=== PATIENT | female | born 1985 | race American Indian/Alaskan Native ===

== ENCOUNTER 2018-12-26 14:48 | Outpatient (CLI) | payer MEDICAID, OTHER | END 2018-12-26 14:49 | disposition home or self-care (01) | LOC: LABHHL 14:48 | PROVIDERS: ATTEND Surgery | DX: N63.14 Unspecified lump in the right breast, lower inner quadrant (principal) | CPT/HCPCS: 88305 ==

== ENCOUNTER 2019-01-23 06:14 | Day surgery (SDC) | payer MEDICAID ==
[~2019-01-23 06:14] MED LIST: ANCEF/STERILE WATER 2 GM/20 ML 2 GM/20 ML SYRINGE IV NR
[2019-01-23] MEDS ORDERED: LACTATED RINGERS 1,000 ML IV SCH (07:00)
[2019-01-23] MEDS ORDERED: VERSED ONE (07:32)
[2019-01-23] MEDS ORDERED: NEURONTIN ONE (07:33)
--- NOTE | 2019-01-23 07:39 | Anesthesia Consultation ---
Anesthesia Consult and Med Hx Date of service: 01/23/19 - Airway Anesthetic Teeth Evaluation: Good ROM Head & Neck: Adequate Mental/Hyoid Distance: Adequate Mallampati Class: Class II Intubation Access Assessment: Probably Good - Pulmonary Exam CTA: Yes - Cardiac Exam Cardiac Exam: RRR - Pre-Operative Health Status ASA Pre-Surgery Classification: ASA2 Proposed Anesthetic Plan: General - Pulmonary Hx Asthma: No COPD: No Hx Pneumonia: No - Cardiovascular System Hx Hypertension: No - Central Nervous System Hx Seizures: No Hx Psychiatric Problems: No - Endocrine Hx Renal Disease: No Hx End Stage Renal Disease: No Hx Hypothyroidism: No Hx Hyperthyroidism: No - Hematic Hx Anemia: No Hx Sickle Cell Disease: No - Other Systems Hx Alcohol Use: Yes (OCCA) Hx Substance Use: No Hx Cancer: No
[2019-01-23] MEDS ORDERED: TORADOL IV PRN (07:40)
[2019-01-23] MEDS ORDERED: DILAUDID IV PRN (07:40)
--- NOTE | 2019-01-23 07:40 | Anesthesia Day of Surgery ---
Anesthesia Day of Surgery - Day of Surgery Patient Examined: Yes Patient H&P Reviewed: Yes Patient is NPO: Yes Beta Blockers: No Cardiac Clearance: No Pulmonary Clearance: No Tanner's Test: N/A
[2019-01-23] MEDS ORDERED: ZOFRAN ONE (07:44)
[2019-01-23] MEDS ORDERED: SUBLIMAZE ONE (07:44)
[2019-01-23] MEDS ORDERED: DECADRON ONE (07:44)
[2019-01-23] MEDS ORDERED: DIPRIVAN 10 MG/ML IV ONE (07:45)
[2019-01-23] MEDS ORDERED: MARCAINE 0.25% INFILTRATI ONE ×2 (07:52→08:33)
[2019-01-23] MEDS ORDERED: XYLOCAINE 1% 20 mL ONE (07:52)
[2019-01-23] MEDS ORDERED: VERSED IV NR (08:00)
[2019-01-23] MEDS ORDERED: NEURONTIN PO NR (08:00)
[2019-01-23] MEDS ORDERED: NACL 0.9% IR ONE (08:34)
[2019-01-23] MEDS ORDERED: XYLOCAINE 1% 20 mL INFILTRATI ONE (08:34)
[2019-01-23] MEDS ORDERED: TORADOL ONE (09:13)
--- NOTE | 2019-01-23 09:23 | Short Stay Summary ---
Short Stay Documentation Date of service: 01/23/19 - History H&P: obtained from office - Allergies and Medications Current Medications: Allergies No Known Allergies Allergy (Verified 01/16/19 10:12) Home Medications Medication Instructions Recorded Confirmed Last Taken Type HYDROcodone/APAP 5-325 [[place] 1 each PO Q6HR PRN #25 tablet 01/23/19 Unknown Rx 5/325] Active Medications Celecoxib (Celebrex) 200 mg PO PREOP NR Stop: 01/23/19 12:00 Last Admin: 01/23/19 07:58 Dose: 200 mg Documented by: Gabapentin (Neurontin) 300 mg PO PREOP NR Stop: 01/23/19 12:00 Last Admin: 01/23/19 07:57 Dose: 300 mg Documented by: Hydromorphone HCl (Dilaudid) 0.5 mg IV Q10MIN PRN PRN Reason: Pain , Severe (7-10) Stop: 01/23/19 20:00 Cefazolin Sodium (Ancef/Sterile Water 2 Gm/20 Ml) 2 gm in 20 mls @ 80 mls/hr IV PREOP NR; Protocol Stop: 01/23/19 20:00 Lactated Ringer's (Lactated Ringers) 1,000 mls @ 75 mls/hr IV DIRECT ERIC Last Admin: 01/23/19 07:10 Dose: 75 mls/hr Documented by: Ketorolac Tromethamine (Toradol) 30 mg IV ONCE PRN PRN Reason: Pain, Moderate (4-6) Stop: 01/23/19 12:00 Midazolam HCl (Versed) 2 mg IV PREOP NR Stop: 01/23/19 23:59 - Brief post op/procedure progress note Date of procedure: 01/23/19 Pre-op diagnosis: Right breast mass Post-op diagnosis: same Procedure: Right breast mass excisional biopsy Anesthesia: GETA Findings: Known right breast mass at 6:00 position 2-3 cm from the nipple with mass removed in its entirety, clip noted Surgeon: AJAY BARBOSA Estimated blood loss: minimal Pathology: list (right breast mass) Specimen disposition: to lab Condition: stable - Disposition Condition at discharge: Good Disposition: DC-01 TO HOME OR SELFCARE Short Stay Discharge Plan Activity: other (no heavy lifting) Diet: regular Wound: keep clean and dry (may shower in 48 hours) Follow up with: JENNIFER HENDRIX MD [Primary Care Provider] - 7 Days AJAY BARBOSA MD [Staff Physician] - 7 Days Prescriptions: HYDROcodone/APAP 5-325 [[place] 5/325] 1 each PO Q6HR PRN #25 tablet PRN Reason: Pain
--- NOTE | 2019-01-23 09:29 | Operative Report ---
Operative Report Operative Report: Date of Service: January 23, 2019 Preoperative diagnosis: Right breast mass of the lower outer quadrant Postoperative diagnosis: Same Procedure: Right breast mass excisional biopsy of the lower outer quadrant Surgeon: Adilia San M.D. Findings: Right breast mass at 6 o'clock position 2 cm from the nipple with excisional biopsy performed, clip noted Complications: None Drains: None Estimated blood loss: Minimal Disposition: PACU in good condition Indication for operative procedure: This is a 33-year-old lady with known right breast mass at the 6:00 position. Recent biopsy performed with nondiagnostic findings on pathology. Patient wanted to proceed with right breast excisional biopsy and recommendations were for excisional biopsy given symptomatic pain and nondiagnostic pathology findings. Patient wished to proceed with the above procedure. The patient was procedure in detail: The patient was taken to the operating room and was laid supine. General anesthesia was administered. The right breast mass was palpable at the 6 o'clock position 2 cm from the nipple, mobile and soft. The right breast was prepped and draped in the normal sterile operative fashion. Timeout was performed. A periareolar breast incision was made with a 15 blade knife at the 6:00 position with dissection taken down to the subcutaneous tissues. The mass was encountered and was dissected free with the aid of the Bovie cautery. The specimen was sent to pathology. Hemostasis was then obtained using the Bovie cautery. Breast cavity was anesthesized with 1% lidocaine and quarter percent marcaine. The breast cavity was irrigated and suctioned. The deep breast tissues were approximated and closed using interrupted 3-0 Vicryl and skin brought together and closed using a running 4-0 Monocryl followed by dermabond. She tolerated surgery very well and was awakened from anesthesia without any complication and transported to PACU in good condition.
[2019-01-23] MEDS ORDERED: NORCO 5/325 PO PRN (10:00)
[2019-01-23 10:07] VITALS: BP 137/89
== END 2019-01-23 10:50 | disposition home or self-care (01) ==
LOC: OR 06:14
PROVIDERS: ATTEND Surgery
DX: D24.1 Benign neoplasm of right breast (principal); R92.0 Mammographic microcalcification found on diagnostic imaging of breast; Z80.3 Family history of malignant neoplasm of breast; Z79.899 Other long term (current) drug therapy; Z72.89 Other problems related to lifestyle; Z98.890 Other specified postprocedural states; Z83.3 Family history of diabetes mellitus; Z82.49 Family history of ischemic heart disease and other diseases of the circulatory system
CPT/HCPCS: 19120; 81025; 88307; J0690; J1100; J1885; J2250; J2405; J2704; J3010; J7120